=== PATIENT | male | born 1990 | race Two or more races ===

== ENCOUNTER 2023-07-10 23:08 | Emergency (ER) | payer MEDICAID, OTHER ==
[~2023-07-10] VITALS: Ht 175.3 cm; Wt 81.7 kg
[2023-07-10 23:20] VITALS: BP 173/102; RESP 16; O2SAT 98
[2023-07-10 23:23] VITALS: PULSE 104
== END 2023-07-11 00:20 | disposition left against medical advice (07) ==
LOC: EDBD 23:08 → ER 23:08
DX: R23.0 Cyanosis (principal); R40.4 Transient alteration of awareness; Z53.21 Procedure and treatment not carried out due to patient leaving prior to being seen by health care provider
CPT/HCPCS: 93005